=== PATIENT | male | born 1950 | race Caucasian/White ===

== ENCOUNTER 2016-12-31 08:06 | Emergency (ER) | payer MEDICARE, OTHER ==
[2016-12-31 08:41] VITALS: BP 155/90
--- NOTE | 2016-12-31 08:43 | UC ---
Skin Complaint HPI - HPI Summary HPI Summary: 66 yo male had a rash develop on his legs about 3 hours after a massage later that day he went into a hot tub rash improved somewhat with OTC HC cr - History of Current Complaint Chief Complaint: UCRash Time Seen by Provider: 12/31/16 08:28 Stated Complaint: RASH Hx Obtained From: Patient Onset/Duration: Gradual Onset, Lasting Days Timing: Constant Onset Severity: Mild Current Severity: Mild Pain Intensity: 0 Pain Scale Used: 0-10 Numeric Location: Other - thighs/calves Character: Pruritus, Redness Aggravating: Touch Alleviating: OTC Creams/Salves Associated Signs & Symptoms: Positive: Rash - Allergy/Home Medications Allergies/Adverse Reactions: Allergies Allergy/AdvReac Type Severity Reaction Status Date / Time No Known Allergies Allergy Verified 12/31/16 08:17 Home Medications: Home Medications Amlodipine Besylate [Norvasc-] 10 mg PO DAILY 12/31/16 [History Confirmed ] Bisoprolol & Hydrochlorothiazi [Ziac 10-6.25 mg-] 1 tab PO DAILY 12/31/16 [ History Confirmed 12/31/16] Fenofibrate 150 mg PO 12/31/16 [History] Losartan Potassium [Cozaar] 50 mg PO 12/31/16 [History] Simvastatin TAB(NF) [Zocor(NF)] 10 mg PO DAILY 12/31/16 [History Confirmed 12/31] metFORMIN* [Glucophage*] 500 mg PO 0800,1700 12/31/16 [History Confirmed ] Review of Systems Constitutional: Negative Skin: Rash Eyes: Negative ENT: Negative Respiratory: Negative Cardiovascular: Negative Gastrointestinal: Negative Genitourinary: Negative Motor: Negative Neurovascular: Negative Musculoskeletal: Negative Neurological: Negative Psychological: Negative All Other Systems Reviewed And Are Negative: Yes PMH/Surg Hx/FS Hx/Imm Hx Previously Healthy: Yes Endocrine History Of: Reports: Diabetes Cardiovascular History Of: Reports: Hypertension - Surgical History Surgical History: None - Family History Known Family History: Positive: Hypertension, Diabetes - Social History Alcohol Use: Daily Alcohol Amount: 1-2 drinks per day Substance Use Type: None Smoking Status (MU): Never Smoked Tobacco Physical Exam Triage Information Reviewed: Yes Appearance: Well-Appearing, No Pain Distress, Well-Nourished Vital Signs: Initial Vital Signs Temp 97.2 F 12/31/16 08:11 Pulse 68 12/31/16 08:11 Resp 20 12/31/16 08:11 BP 161/93 12/31/16 08:11 Pulse Ox 98 12/31/16 08:11 Eyes: Positive: Conjunctiva Clear ENT: Positive: Hearing grossly normal. Negative: Nasal congestion, Nasal drainage, Trismus, Muffled/hoarse voice Neck: Positive: Supple, Nontender Respiratory: Positive: Lungs clear, Normal breath sounds, No respiratory distress Cardiovascular: Positive: RRR, No Murmur Bowel Sounds: Positive: Present Musculoskeletal: Positive: ROM Intact, No Edema Neurological: Positive: Alert Psychological Exam: Normal Skin: Positive: rashes - LE- red macular/papular ...not associated with follicles Course/Dx - Diagnoses Provider Diagnoses: contact dermatitis Discharge - Discharge Plan Condition: Stable Disposition: HOME Prescriptions: Triamcinolone 0.5% CREAM(NF) [Triamcinolone 0.5% CREAM*] 1 applic TOPICAL QID PRN #60 tube PRN Reason: Rash hydrOXYzine HCL TAB* [Atarax TAB*] 25 mg PO DAILY PRN #7 tab PRN Reason: Itching Patient Education Materials: Contact Dermatitis (ED) Referrals: Suresh Koroma MD [Primary Care Provider] - If Needed
== END 2016-12-31 08:59 | disposition home or self-care (01) ==
LOC: UCEAST 08:06
DX: L25.9 Unspecified contact dermatitis, unspecified cause (principal); E11.9 Type 2 diabetes mellitus without complications; I10 Essential (primary) hypertension
CPT/HCPCS: 99212; G0463

== ENCOUNTER 2018-08-14 11:21 | Emergency (ER) | payer MEDICARE, OTHER ==
[2018-08-14] MEDS ORDERED: Lidocaine 1% MPF* 2 ML VIAL INJ ONE (13:23)
[2018-08-14] MEDS ORDERED: Tetan/Diph/Pertus SYR(Tdap)* 0.5 ML SYR(BOOSTRIX) use SYR IM ONE (13:26)
[2018-08-14] MEDS ORDERED: Lidocaine 1%* 5 ML VIAL INJ ONE (13:32)
--- NOTE | 2018-08-14 13:32 | RAD ---
Indication: Potential splinter lateral side RIGHT foot. Pain when standing. Comparison: No relevant prior exams available on the [facility] [place] [facility] PACS for comparison. Technique: AP and lateral views RIGHT foot. Report: 1.5 mm linear radiopaque density within the plantar soft tissues subjacent to the distal metaphysis of the fifth metatarsal approximate 2 mm deep to the plantar skin surface corresponds with the region of clinical concern concerning for retained body. Surrounding mild soft tissue swelling. No subcutaneous emphysema evident. Negative for fracture or malalignment. Normal variant bipartite medial sesamoid at the first metatarsal phalangeal joint. IMPRESSION: #. Tiny splinter shaped radiopaque foreign body within the plantar soft tissues subjacent to the distal metaphysis of the fifth metatarsal.
[2018-08-14 13:59] VITALS: BP 135/84
--- NOTE | 2018-08-14 14:22 | UC ---
Lower Extremity/Ankle HPI - HPI Summary HPI Summary: 68-year-old male presents with report of splinter to the bottom of his right foot. States he was walking in his house barefoot last evening and felt something enter bottom of his right foot. Unsure of what he stepped on. States he was unable to adequately visualize the affected area in order to attempt removal on its own. Denies fever, chills, redness, swelling, or purulent drainage. Unsure of last tetanus. - History of Current Complaint Chief Complaint: UCSkin Stated Complaint: FB IN FOOT Time Seen by Provider: 08/14/18 12:58 Hx Obtained From: Patient Onset/Duration: Sudden Onset Severity Currently: Mild Pain Intensity: 0 Aggravating Factor(s): Standing Alleviating Factor(s): Rest Able to Bear Weight: Yes - Allergies/Home Medications Allergies/Adverse Reactions: Allergies Allergy/AdvReac Type Severity Reaction Status Date / Time No Known Allergies Allergy Verified 08/14/18 11:36 Home Medications: Home Medications Areds 1 dose PO DAILY 08/14/18 [History Confirmed 08/14/18] PMH/Surg Hx/FS Hx/Imm Hx Endocrine History: Diabetes, Dyslipidemia Cardiovascular History: Hypertension - Surgical History Surgical History: Yes Surgery Procedure, Year, and Place: tonsillectomy. vasectomy. right knee arthroscopy. wisdom teeth - Family History Known Family History: Positive: Hypertension, Diabetes - Social History Occupation: Retired Lives: With Family Alcohol Use: Daily Alcohol Amount: 1-2 drinks per day Substance Use Type: None Smoking Status (MU): Never Smoked Tobacco Review of Systems Constitutional: Negative Skin: Other - See HPI Motor: Negative Neurovascular: Negative Musculoskeletal: Negative Is Patient Immunocompromised?: No All Other Systems Reviewed And Are Negative: Yes Physical Exam Triage Information Reviewed: Yes Appearance: Well-Appearing, No Pain Distress, Well-Nourished Vital Signs: Initial Vital Signs Temp 97.2 F 08/14/18 11:35 Pulse 72 08/14/18 11:35 Resp 16 08/14/18 11:35 BP 129/77 08/14/18 11:35 Pulse Ox 99 08/14/18 11:35 Respiratory: Positive: Lungs clear, Normal breath sounds, No respiratory distress Cardiovascular: Positive: RRR, No Murmur, Pulses Normal, Brisk Capillary Refill Neurological: Positive: Alert, Other: - Sensation Procedures - Procedure Summary Procedure Summary: Procedure note: Foreign body removal right plantar foot Right foot X-ray obtained. Small 1.5 mm radiopaque foreign body to plantar soft tissue overlying the distal 5th metatarsal. Informed consent was obtained before procedure started and the appropriate timeout was taken. Procedure: The area was prepped using Betadine scrub. Local anesthesia was achieved using 1 ml of lidocaine 1% lidocaine without epinephrine. A small incision was made using a #11 scapel. Wound was explored with forceps. No foreign body visualized. The wound was copiously irrigated with 500 ml sterile saline. A follow up X-ray was obtained and no foreign body noted. Estimated blood loss was less than 0.5 mL. The wound was left open. A dressing was applied to the area. Anticipatory guidance, as well as standard post- procedure care was discussed with patient. Return precautions are given. The patient tolerated the procedure well without complications. Lower Extremity Course/Dx - Course Course Of Treatment: 68-year-old male presents for concern of foreign body to his right plantar foot. Exam revealed multiple puncture wound in the plantar surface of his right foot overlying the fifth metatarsal. X-ray was obtained and a 1.5 mm foreign body was seen over the area of concern. A small incision was made over the area concern, wound was explored and no foreign body observed therefore wound was copiously irrigated. Post procedure x-ray showed no foreign body present. Wound was left open to allow for drainage. Patient's tetanus was updated. Wound care instructions as well as warning symptoms of infection were reviewed with patient verbalizes understanding and agrees with plan of care. - Differential Dx/Diagnosis Provider Diagnoses: FB right foot Discharge - Sign-Out/Discharge Documenting (check all that apply): Patient Departure All imaging exams completed and their final reports reviewed: Yes - Discharge Plan Condition: Stable Disposition: HOME Patient Education Materials: Soft Tissue Foreign Body (ED) Referrals: Suresh Koroma MD [Primary Care Provider] - If Needed Additional Instructions: The foreign body that was seen on your initial x-ray was not present on the follow-up therefore it appears that the foreign body to foot was completely removed. You may go ahead and shower as normal. Avoid submerging the foot under water for at least 48 hours. Be sure to gently clean the area with a mild soap and water at least once daily. Apply an antibiotic ointment and keep covered with a Band-Aid until fully healed. Use an [id number] pain medication such as acetaminophen (Tylenol) or ibuprofen (Advil, Motrin) according to directions as needed for pain. We updated your tetanus today. Be sure to notify your primary care provider so that they can update your records. Watch for signs of infection including fever greater than 100.5 F, redness that spreads, swelling around the wound, pain that is not managed with over-the- counter pain medications, or pus draining from the wound. Seek immediate medical attention should any of these occur - Billing Disposition and Condition Condition: STABLE Disposition: Home - Attestation Statements Provider Attestation: Per institutional requirements, I have reviewed the chart, however, I was not consulted specifically or made aware of this patient by the midlevel provider. I did not personally evaluate, interact with , or disposition this patient.
--- NOTE | 2018-08-14 14:24 | RAD ---
HISTORY: post FB removal COMPARISONS: None VIEWS: 2 , Frontal and lateral views of the left foot FINDINGS: BONE DENSITY: Normal. BONES: There is no displaced fracture. 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 ALIGNMENT: There is no dislocation. SOFT TISSUES: There is peripheral arterial calcification. OTHER FINDINGS: There is no radiopaque foreign body. IMPRESSION: NO ACUTE OSSEOUS INJURY. IF SYMPTOMS PERSIST, RECOMMEND REPEAT IMAGING.
== END 2018-08-14 14:31 | disposition home or self-care (01) ==
LOC: UCEAST 11:21
DX: S90.851A Superficial foreign body, right foot, initial encounter (principal); W45.8XXA Other foreign body or object entering through skin, initial encounter; Y93.01 Activity, walking, marching and hiking; Y92.009 Unspecified place in unspecified non-institutional (private) residence as the place of occurrence of the external cause; Z23 Encounter for immunization
CPT/HCPCS: 28190; 90471; 90715; 99212; G0463

== ENCOUNTER 2020-01-11 13:06 | Emergency (ER) | payer MEDICARE, OTHER ==
[2020-01-11 13:41] VITALS: BP 145/83
[2020-01-11 14:33] LABS: Influenza A Molecular Negative (Negative); Influenza B Molecular Negative (Negative)
--- NOTE | 2020-01-11 14:40 | UC ---
Throat Pain/Nasal Nacho HPI - HPI Summary HPI Summary: left side of throat sore for a couple of days no nasal drainage some hacking cough no fever - History of Current Complaint Chief Complaint: UCGeneralIllness Stated Complaint: SORE THROAT Time Seen by Provider: 01/11/20 14:10 Hx Obtained From: Patient Onset/Duration: Gradual Onset, Lasting Days Pain Intensity: 3 Pain Scale Used: 0-10 Numeric Cough: Nonproductive Associated Signs & Symptoms: Positive: Hoarseness. Negative: Sinus Discomfort, Nasal Discharge, Fever - Allergies/Home Medications Allergies/Adverse Reactions: Allergies Allergy/AdvReac Type Severity Reaction Status Date / Time No Known Allergies Allergy Verified 01/11/20 13:41 Home Medications: Home Medications Amlodipine Besylate [Norvasc-] 10 mg PO DAILY 12/31/16 [History Confirmed ] Bisoprolol/Hydrochlorothiazide [Ziac 10-6.25 mg-] 1 tab PO DAILY 12/31/16 [ History Confirmed 01/11/20] Fenofibrate 150 mg PO DAILY 12/31/16 [History Confirmed 01/11/20] Losartan Potassium [Cozaar] 50 mg PO DAILY 12/31/16 [History Confirmed 01/11/20] Simvastatin TAB(NF) [Zocor(NF)] 10 mg PO DAILY 12/31/16 [History Confirmed 01/10] metFORMIN* [Glucophage*] 500 mg PO 0800,1700 12/31/16 [History Confirmed ] Areds 1 dose PO DAILY 08/14/18 [History Confirmed 01/11/20] PMH/Surg Hx/FS Hx/Imm Hx Previously Healthy: No Endocrine History: Diabetes, Dyslipidemia Cardiovascular History: Hypertension - Surgical History Surgical History: Yes Surgery Procedure, Year, and Place: tonsillectomy. vasectomy. right knee arthroscopy. wisdom teeth - Family History Known Family History: Positive: Hypertension, Diabetes - Social History Occupation: Retired Lives: With Family Alcohol Use: Daily Alcohol Amount: 3 drinks per day Substance Use Type: None Smoking Status (MU): Never Smoked Tobacco Review of Systems All Other Systems Reviewed And Are Negative: Yes Constitutional: Positive: Negative Skin: Positive: Negative Eyes: Positive: Negative ENT: Positive: Sore Throat Respiratory: Positive: Cough Cardiovascular: Positive: Negative Gastrointestinal: Positive: Negative Genitourinary: Positive: Negative Motor: Positive: Negative Neurovascular: Positive: Negative Musculoskeletal: Positive: Negative Neurological/Mental Status: Positive: Negative Psychological: Positive: Negative Is Patient Immunocompromised?: No Physical Exam Triage Information Reviewed: Yes Appearance: Well-Appearing, No Pain Distress, Well-Nourished Vital Signs: Initial Vital Signs Temp 98.4 F 01/11/20 13:36 Pulse 65 01/11/20 13:36 Resp 16 01/11/20 13:36 BP 145/83 01/11/20 13:36 Pulse Ox 99 01/11/20 13:36 Vital Signs Reviewed: Yes Eye Exam: Normal Eyes: Positive: Conjunctiva Clear ENT Exam: Normal ENT: Positive: Normal ENT inspection, Hearing grossly normal, Pharynx normal, TMs normal, Uvula midline. Negative: Nasal congestion, Nasal drainage, Trismus , Muffled voice, Hoarse voice, Dental tenderness, Sinus tenderness Dental Exam: Normal Neck exam: Normal Neck: Positive: Supple, Nontender, No Lymphadenopathy Respiratory Exam: Normal Respiratory: Positive: Chest non-tender, Lungs clear, Normal breath sounds, No respiratory distress, No accessory muscle use Cardiovascular Exam: Normal Cardiovascular: Positive: RRR, No Murmur, Pulses Normal, Brisk Capillary Refill Musculoskeletal Exam: Normal Musculoskeletal: Positive: Strength Intact, ROM Intact, No Edema Neurological Exam: Normal Neurological: Positive: Alert, Muscle Tone Normal Psychological Exam: Normal Skin Exam: Normal Diagnostics - Laboratory Lab Results: RST- Throat Pain/Nasal Course/Dx - Course Course Of Treatment: increase fluids, tylenol ibuprofen otc medications for symptoms relief follow BP with pcp and return as needed - Differential Dx/Diagnosis Provider Diagnosis: Viral URI with cough Discharge ED - Sign-Out/Discharge Documenting (check all that apply): Patient Departure All imaging exams completed and their final reports reviewed: No Studies - Discharge Plan Condition: Stable Disposition: HOME Patient Education Materials: Viral Syndrome (ED), Hypertension (ED) Referrals: Suresh Koroma MD [Primary Care Provider] - 2 Weeks Additional Instructions: Black elderberry may be helpful in decreasing the severity/duration of viral illnesses - Billing Disposition and Condition Condition: STABLE Disposition: Home
== END 2020-01-11 15:02 | disposition home or self-care (01) ==
LOC: UCEAST 13:06
DX: J06.9 Acute upper respiratory infection, unspecified (principal); R05 Cough; E11.9 Type 2 diabetes mellitus without complications; E78.5 Hyperlipidemia, unspecified; I10 Essential (primary) hypertension; Z79.899 Other long term (current) drug therapy; Z79.84 Long term (current) use of oral hypoglycemic drugs
CPT/HCPCS: 87651; 99211; G0463